=== PATIENT | male | born 1985 | race African-American/Black ===

== ENCOUNTER 2021-12-08 23:27 | Emergency (ER) | payer SELFPAY ==
[~2021-12-08] VITALS: Ht 172.7 cm; Wt 78.4 kg
[2021-12-08 23:35] VITALS: BP 151/90
[2021-12-09] MEDS ORDERED: IBUPROFEN 600MG TABLET PO ONE (04:15)
[2021-12-09] MEDS ORDERED: DIPHENHYDRAMINE 25MG CAPSULE PO ONE (05:15)
== END 2021-12-09 05:19 | disposition home or self-care (01) ==
LOC: ER 23:27
DX: M79.641 Pain in right hand (principal); J45.909 Unspecified asthma, uncomplicated; Z88.0 Allergy status to penicillin
CPT/HCPCS: 73130; 99283